=== PATIENT | female | born 1940 | race African-American/Black ===

== ENCOUNTER 2018-10-03 21:34 | Emergency (ER) | payer MEDICARE, OTHER ==
[~2018-10-03] VITALS: Ht 165.1 cm; Wt 87.3 kg
[2018-10-03] MEDS ORDERED: NOVOLOG 100U100 U/ML SQ (21:53)
[2018-10-03] MEDS ORDERED: LEVEMIR100 U/M1 SQ (21:53)
[2018-10-03] MEDS ORDERED: GOOD NEIGHBOR P20 M1 PO (21:54)
[2018-10-03] MEDS ORDERED: DIOVAN 40MG40 MG PO (21:54)
[2018-10-03] MEDS ORDERED: METOPROLOL SUC100 M1 PO (21:54)
[2018-10-03] MEDS ORDERED: LASIX20 M1 PO (21:54)
[2018-10-03] MEDS ORDERED: SINGULAIR 110 MG/TAB PO (21:55)
[2018-10-03] MEDS ORDERED: RT ALBUTEROL CC18 GM IH (21:55)
[2018-10-03] MEDS ORDERED: ATORVASTATIN CA10 MG PO (21:55)
[2018-10-03 22:20] LABS: EOS % 0.5 % (1.0-5.0); HEMATOCRIT 40.6 % (37.0-47.0); HEMOGLOBIN 13.3 g/dL (12.5-16.0); LYMPH# 3.5 (1.50-4.00); MEAN CELL VOLUME 90 fl (78-100); MEAN CORPUSCULAR HEMOGLOBIN 30 pg (27-31); MEAN CORPUSCULAR HGB CONC 33 g/dL (33-37); MEAN PLATELET VOLUME 9.7 fl (7.4-10.4); MONO # 0.7 (0.20-0.80); PLATELET COUNT 258 K/mm3 (130-400); RED CELL DISTRIBUTION WIDTH 14.7 % (11.5-14.5); WHITE BLOOD COUNT 8.3 K/mm3 (4.8-10.8)
[2018-10-03 22:29] LABS: ALBUMIN 4.4 g/dL (3.5-5.0); CALCIUM 9.9 mg/dL (8.4-10.2); POTASSIUM 3.7 mmol/L (3.6-5.0); TOTAL BILIRUBIN 0.7 mg/dL (0.2-1.3)
[2018-10-04 00:12] LABS: URINE APPEARANCE HAZY; URINE COLOR YELLOW
[2018-10-04 00:13] LABS: URINE BILIRUBIN NEGATIVE (NEGATIVE); URINE BLOOD TRACE (NEGATIVE); URINE GLUCOSE NEGATIVE (NEGATIVE); URINE KETONE NEGATIVE (NEGATIVE); URINE LEUKOCYTE ESTERASE 2+ (NEGATIVE); URINE NITRATE NEGATIVE (NEGATIVE); URINE PROTEIN(semi-quant) TRACE mg/dL (NEGATIVE); URINE UROBILINOGEN NORMAL (NORMAL); URINE WBC 16-30 /hpf (0-3)
[2018-10-04] MEDS ORDERED: MACROBID 100 M100 MG PO (00:35)
[2018-10-04 00:48] VITALS: BP 172/97
== END 2018-10-04 00:48 | disposition home or self-care (01) ==
LOC: ED 21:34
PROVIDERS: Family Medicine
DX: E11.649 Type 2 diabetes mellitus with hypoglycemia without coma (principal); N39.0 Urinary tract infection, site not specified; K21.9 Gastro-esophageal reflux disease without esophagitis; I10 Essential (primary) hypertension; N28.9 Disorder of kidney and ureter, unspecified; Z79.4 Long term (current) use of insulin

== ENCOUNTER 2023-11-19 18:27 | Emergency (ER) | payer MEDICARE ==
[~2023-11-19] VITALS: Ht 167.6 cm; Wt 93.2 kg
[~2023-11-19 18:27] MED LIST: ATORVASTATIN CA10 MG PO; DIOVAN 40MG40 MG PO; GOOD NEIGHBOR P20 M1 PO; LASIX20 M1 PO; LEVEMIR100 U/M1 SQ; MACROBID 100 M100 MG PO; METOPROLOL SUC100 M1 PO; NOVOLOG 100U100 U/ML SQ; RT ALBUTEROL CC18 GM IH; SINGULAIR 110 MG/TAB PO
[2023-11-19] MEDS ORDERED: AMLODIPINE BESYL5 MG PO (18:36)
[2023-11-19] MEDS ORDERED: TRELEGY ELLIPT1 EAC1 IH (18:37)
[2023-11-19] MEDS ORDERED: TOUJEO SOL300 UNIT/1 SQ (18:37)
[2023-11-19] MEDS ORDERED: PREDNISONE20 MG PO (19:25)
[2023-11-19] MEDS ORDERED: methylPREDNISolone Sod Succ 125 MG/2 ML VIAL IM ONE (19:30)
[2023-11-19 20:11] VITALS: BP 160/85
== END 2023-11-19 20:09 | disposition home or self-care (01) ==
LOC: ED 18:27
DX: S63.91XA Sprain of unspecified part of right wrist and hand, initial encounter (principal); E11.9 Type 2 diabetes mellitus without complications; Z79.4 Long term (current) use of insulin; X58.XXXA Exposure to other specified factors, initial encounter; Y93.73 Activity, racquet and hand sports
CPT/HCPCS: J2930